=== PATIENT | female | born 1990 | race Caucasian/White ===

== ENCOUNTER → 2017-01-16 | Outpatient (CLI) | payer OTHER ==
[2017-01-16 14:51] LABS: HEMATOCRIT 37.6 % (37-47); MEAN CELL VOLUME 89.3 fL (80-100); MEAN CORPUSCULAR HEMOGLOBIN 30.6 pg (25-34); MEAN CORPUSCULAR HGB CONC 34.3 g/dl (32-36); MEAN PLATELET VOLUME 9.1 fL (7.4-10.4); PLATELET COUNT 218 K/uL (130-400); RED BLOOD COUNT 4.21 M/uL (4.2-5.4); WHITE BLOOD COUNT 4.96 K/uL (4.8-10.8)
[2017-01-16 15:29] LABS: ALT/SGPT 18 U/L (12-78); AST/SGOT 19 U/L (15-37); BLOOD UREA NITROGEN 14 mg/dl (7-18); BUN/CREATININE RATIO 16.3 (10-20); CALCIUM 8.6 mg/dl (8.5-10.1); CARBON DIOXIDE 31 mmol/L (21-32); CHLORIDE 106 mmol/L (98-107); CREATININE 0.86 mg/dl (0.60-1.20); GLUCOSE 77 mg/dl (70-99); POTASSIUM 4.1 mmol/L (3.5-5.1); SODIUM 140 mmol/L (136-145)
[2017-01-16 15:32] LABS: ALB/GLOB RATIO 1.3 (0.9-2); ALKALINE PHOSPHATASE 68 U/L (45-117)
[2017-01-20 08:43] LABS: CHLAMYDIA TRACH RNA*** NOT DETECTED (NOT DETECTED); GC (NEIS GONORRHOEAE)RNA** NOT DETECTED (NOT DETECTED)
== END | disposition home or self-care (01) ==
LOC: C.LAB1850 13:16
PROVIDERS: ATTEND Obstetrics & Gynecology
DX: Z20.2 Contact with and (suspected) exposure to infections with a predominantly sexual mode of transmission (principal); Z79.899 Other long term (current) drug therapy

== ENCOUNTER → 2017-01-16 | Outpatient (CLI) | payer OTHER | END | disposition home or self-care (01) | LOC: C.PAPS 16:08 | PROVIDERS: ATTEND Obstetrics & Gynecology | DX: Z12.4 Encounter for screening for malignant neoplasm of cervix (principal) ==

== ENCOUNTER → 2017-02-28 | Outpatient (CLI) | payer OTHER | END | disposition home or self-care (01) | LOC: C.LABSPEC 13:17 | PROVIDERS: ATTEND Physician Assistant | DX: L29.8 Other pruritus (principal) ==

== ENCOUNTER → 2017-04-18 | Outpatient (CLI) | payer OTHER | END | disposition home or self-care (01) | LOC: C.LAB 07:35 | PROVIDERS: ATTEND Dermatology | DX: L70.9 Acne, unspecified (principal) ==

== ENCOUNTER → 2017-07-22 | Outpatient (CLI) | payer OTHER ==
[2017-07-22 12:49] LABS: ALBUMIN 4.1 gm/dl (3.4-5.0); TOTAL PROTEIN 7.3 gm/dl (6.4-8.2)
== END | disposition home or self-care (01) ==
LOC: C.LAB1850 09:44
PROVIDERS: ATTEND Dermatology
DX: L70.0 Acne vulgaris (principal)

== ENCOUNTER → 2017-08-05 | Outpatient (CLI) | payer OTHER ==
--- NOTE | 2017-08-05 11:07 | DIAGNOSTIC IMAGING REPORT ---
ABDOMEN LIMITED (US) CLINICAL HISTORY: 27 years-old Female presenting with UPPER RIGHT QUAD Pain, r/o GALLSTONES, right upper quadrant pain for one year. TECHNIQUE: Real-time grayscale and limited color Doppler ultrasound imaging of the abdomen limited to the right upper quadrant was performed. COMPARISON: None. FINDINGS: Pancreas: Visualized portions of the pancreatic head and body normal. Liver: Normal echogenicity and echotexture. No sonographic evidence of hepatic mass. Main portal vein patent with normal directional flow. Biliary: No intrahepatic biliary ductal dilatation. Common bile duct measures up to 3 mm in diameter. Gallbladder: 2 mm hyperechogenic focus adherent to the gallbladder wall suggests cholesterol polyp. No evidence of gallstones, gallbladder wall thickening, gallbladder distention, or pericholecystic fluid or inflammatory change. Right kidney: Normal in appearance. No hydronephrosis. Ascites: None. Other: None. IMPRESSION: No cholelithiasis or biliary ductal dilatation. Electronically signed by: Javier Dent M.D. 08/05/2017 11:06 AM Dictated Date/Time: 08/05/2017 11:05 AM
== END | disposition home or self-care (01) ==
LOC: C.ULTRBC 08:36
PROVIDERS: ATTEND Family Medicine
DX: R10.11 Right upper quadrant pain (principal); Z79.899 Other long term (current) drug therapy

== ENCOUNTER → 2017-08-07 | Outpatient (CLI) | payer OTHER ==
[~2017-08-07] MED LIST: SINCALIDE INJ 1.1 MCG in SODIUM CHLORIDE 0.9% 100ML 100 ML IV SCH
--- NOTE | 2017-08-07 16:57 | DIAGNOSTIC IMAGING REPORT ---
NUCLEAR HEPATOBILIARY SCAN WITH EJECTION FRACTION IMAGING CLINICAL HISTORY: Right upper quadrant abdominal pain. COMPARISON STUDY: Abdominal ultrasound dated 08/05/2017. TECHNIQUE: Dynamic images of the liver and anterior abdomen were obtained every 5 minutes for a total of 60 minutes following the IV administration of 5.5mCi of technetium 99m Choletec. 1.1 mcg of sincalide was then injected with additional images acquired every 5 minutes for 45 minutes to calculate the gallbladder ejection fraction. There is mild discomfort with the Kinevac injection. FINDINGS: The hepatobiliary scan shows prompt and homogeneous hepatic uptake. There is visualized activity within the intra and extrahepatic biliary tree at 15 minutes, and within the gallbladder at 20 minutes. There is normal biliary to bowel transit, with small bowel visualized by 50 minutes. On the sincalide imaging, the gallbladder ejection fraction was measured at 82%. IMPRESSION: 1. Unremarkable nuclear hepatobiliary scan. There is no scintigraphic evidence of cholecystitis. 2. The gallbladder ejection fraction measured 82% which is normal. Electronically signed by: Angel Corrales M.D. 08/07/2017 4:55 PM Dictated Date/Time: 08/07/2017 4:54 PM
== END | disposition home or self-care (01) ==
LOC: C.NUCL 10:07
PROVIDERS: ATTEND Physician Assistant Medical
DX: R10.11 Right upper quadrant pain (principal)

== ENCOUNTER 2017-09-02 08:26 | Day surgery (SDC) | payer OTHER ==
[2017-08-28 10:37] VITALS: Ht 160 cm; Wt 57.0 kg
[~2017-09-02] VITALS: Ht 160 cm; Wt 57.0 kg
[~2017-09-02 08:26] MED LIST changes: +ACCUTANE PO; +CEFAZOLIN 2000MG IV PUSH 15 ML IV SCH; +ESCI10TA17 PO; +LACTATED RINGER'S 1000ML 1,000 ML IV SCH; -SINCALIDE INJ 1.1 MCG in SODIUM CHLORIDE 0.9% 100ML 100 ML IV SCH
[2017-09-02 08:59] VITALS: BP 107/67; PULSE 77; TEMP 36.9; O2SAT 99
[2017-09-02] MEDS ORDERED: ONDANSETRON INJ 2 MG/ML 2 ML VIAL ONE (09:03)
[2017-09-02] MEDS ORDERED: DEXAMETHASONE SOD INJ 4 MG/ML VIAL ONE (09:03)
[2017-09-02] MEDS ORDERED: HYDROmorphone INJ 2 MG/ML SYR/VIAL ONE (09:03)
[2017-09-02] MEDS ORDERED: LIDOCAINE HCL 2% 2 ML VIAL (20MG/ML) ONE (09:03)
[2017-09-02] MEDS ORDERED: FENTANYL CITRATE INJ 50 MCG/1 ML 2 ML VIAL ONE ×2 (09:03→09:45)
[2017-09-02] MEDS ORDERED: GLYCOPYRROLATE INJ 0.2 MG/ML VIAL ONE (09:03)
[2017-09-02] MEDS ORDERED: PROPOFOL IV EMULSION 10 MG/ML 20 ML VIAL ONE (09:03)
[2017-09-02] MEDS ORDERED: LARYING-O-JET KIT (LTA) ONE (09:03)
[2017-09-02] MEDS ORDERED: SODIUM CHLORIDE 0.9% INJ 10 ML VIAL ONE (09:03)
[2017-09-02] MEDS ORDERED: NEOSTIGMINE METHYLSULFATE 5 MG/5 ML SYR ONE (09:03)
[2017-09-02] MEDS ORDERED: MIDAZOLAM HCL 1 MG/ML 2ML VIAL ONE (09:03)
[2017-09-02] MEDS ORDERED: HYDR-5688 PO (09:24)
[2017-09-02] MEDS ORDERED: DiphenhydrAMINE HCL 50 MG/ML VIAL IV STA (09:29)
[2017-09-02] MEDS ORDERED: DiphenhydrAMINE HCL 50 MG/ML VIAL ONE (09:29)
[2017-09-02] MEDS ORDERED: BUPIVACAINE/EPINEPHRINE 0.5% MPF 1:200,000 30 ML VIAL ONE (09:35)
--- NOTE | 2017-09-02 09:52 | History & Physical Bridge Note ---
H&P Re-Evaluation Bridge Note: I have examined the patient, reviewed the History & Physical and in the interval since the performance of the History & Physical I have noted the following changes of clinical significance: No changes noted
[2017-09-02] MEDS ORDERED: ATROPINE SULFATE 0.1 MG/ML 5ML SYR IV PRN (10:00)
[2017-09-02] MEDS ORDERED: MEPERIDINE HCL 25 MG/ML CARP IV PRN (10:00)
[2017-09-02] MEDS ORDERED: ONDANSETRON INJ 2 MG/ML 2 ML VIAL IV PRN ×2 (10:00→11:15)
[2017-09-02] MEDS ORDERED: HYDROmorphone INJ 2 MG/ML SYR/VIAL IV PRN (10:00)
[2017-09-02] MEDS ORDERED: EpHEDrine SULFATE INJ 50 MG/ML AMP IV PRN (10:00)
[2017-09-02] MEDS ORDERED: LABETALOL HCL IV 5 MG/ML 20ML IV PRN (10:00)
[2017-09-02] MEDS ORDERED: FENTANYL CITRATE INJ 50 MCG/1 ML 2 ML VIAL IV PRN (10:00)
[2017-09-02] MEDS ORDERED: PHENYLEPHRINE 100MCG/ML 5ML SYR ONE (10:30)
[2017-09-02] MEDS ORDERED: ROCURONIUM BROMIDE 10 MG/ML 5 ML VIAL ONE (10:30)
--- NOTE | 2017-09-02 10:59 | [facility] Post Operative Brief Note ---
Immediate Operative Summary Operative Date September 02, 2017. Pre-Operative Diagnosis Right upper quadrant pain Post-Operative Diagnosis Right upper quadrant pain/biliary dyskinesia Procedure(s) Performed Diagnostic Laparoscopy and Laparoscopic Cholecystectomy Surgeon Dr. Mistry Cnc Machine Programmer Surgeon(s) Clemencia Murrell PA-C Estimated Blood Loss 5 ML Findings Consistent with Post-Op Diagnosis Specimens Permanent: A: Gallbladder and contents Anesthesia Type General
[2017-09-02] MEDS ORDERED: SODIUM CHLORIDE 0.9% 1000ML 1,000 ML IV SCH (11:07)
--- NOTE | 2017-09-02 11:09 | Discharge Instructions ---
Discharge Instructions Date of Service September 02, 2017. Admission Reason for Admission: Right Upper Quadrant Abdominal Pain Discharge Discharge Diagnosis / Problem: Right Upper Quadrant Abdominal Pain Discharge Goals Goal(s): Decrease discomfort, Improve function Activity Recommendations Activity Limitations: as noted below Lifting Limitations: no more than 10 pounds Exercise/Sports Limitations: until after follow-up appointment May Resume Sexual Activity: after follow-up appointment Shower/Bathe: tomorrow Driving or Machine Use: resume 1 day after discharge . Instructions / Follow-Up Instructions / Follow-Up You have surgical glue, Dermabond, over your incision. You may shower tomorrow , but please do not soak or scrub your incision until you see Dr. Mistry back in the General Surgery Clinic. Please follow-up with Dr. Mistry in the General Surgery Clinic located at [address] [place] [address] JERRICA Murillo in 1-2 weeks. Please call the office at [phone] to make an appointment if you do not have one already. Please call the General Surgery Clinic at [phone] with any questions or concerns. Current Hospital Diet Patient's current hospital diet: Discharge Diet Recommended Diet: Regular Diet Procedures Procedures Performed: Diagnostic Laparoscopy, Laparoscopic Cholecystectomy Pending Studies Studies pending at discharge: yes List of pending studies: Pathology report. Laboratory Results Lipid Panel Test 07/22/17 09:50 Range/Units Triglycerides Level 66 0-150 mg/dl Cholesterol Level 211 H 0-200 mg/dl HDL Cholesterol 67 mg/dl Cholesterol/HDL Ratio 3.1 LDL Cholesterol, Calculated 131 mg/dl Medical Emergencies . Who to Call and When: Medical Emergencies: If at any time you feel your situation is an emergency, please call 911 immediately. . Non-Emergent Contact Non-Emergency issues call your: Primary Care Provider, Surgeon Call Non-Emergent contact if: temperature is above 101.5, your pain is not controlled, wound has increased drainage, wound has increased redness . "Provider Documentation" section prepared by Clemencia Scott. . [place] Drug Monitoring Program Search Results: patient reviewed within database, no issues identified
[2017-09-02] MEDS ORDERED: HYDROCODONE/ACETAMIN 5/325MG TAB PO PRN ×2 (11:15)
--- NOTE | 2017-09-02 11:42 | [facility] Operative Report ---
Operative Report Operative Date September 02, 2017. Pre-Operative Diagnosis Right upper quadrant pain Post-Operative Diagnosis Right upper quadrant pain/biliary dyskinesia Procedure(s) Performed Diagnostic Laparoscopy, Laparoscopic Cholecystectomy Surgeon Dr. Mistry Instructor Painting Surgeon(s) Clemencia Murrell PA-C Estimated Blood Loss 5 ML Specimens Permanent: A: Gallbladder and contents Anesthesia Type General Complication(s) none Description of Procedure After informed consent was obtained the patient was taken to the operating room and placed in the supine position. After successful intubation the abdomen was sterilely prepped and draped in usual fashion. A periumbilical incision was made with an 11 blade scalpel and carried down through the soft tissue using electrocautery. The anterior rectus fascia was opened using electrocautery and 2 #0 Vicryl stay sutures were placed. The peritoneum was elevated with hemostats and incised under direct vision using Metzenbaum scissors. A finger sweep was performed and a 12 mm Lovett trocar was placed. The abdomen was insufflated to 18 mmHg. The laparoscope was inserted and the abdomen was examined in 360. We began by looking in the right upper quadrant which grossly appeared normal other than some mild thickening of the gallbladder with some adhesions at its neck. The stomach diaphragm, liver surfaces all appeared normal as did the peritoneal surfaces. Small/large bowel looked normal. Although we could not look deep into the pelvis we were able to look over the pelvic brim and saw no evidence of endometriosis or any other gross abnormality. Because of her symptoms related to her HIDA scan and the adhesions at the neck of the gallbladder we decided to go ahead and remove her gallbladder as discussed with her. A subxiphoid 5 mm port and 2 right upper quadrant 3 mm ports were placed under direct vision. The patient was placed in a reverse Trendelenburg position and slightly airplaned to the left. The gallbladder was grasped and elevated superiorly and laterally. A [place] dissector was used to take down adhesions around the neck of the gallbladder. The cystic duct was identified and skeletonized. It was clipped twice proximally and once distally and transected using a laparoscopic scissor. In similar fashion the cystic artery was identified and skeletonized clipped and divided. The gallbladder was removed from the gallbladder fossa with electrocautery. It was placed into an Endo Catch bag. Thorough irrigation was performed. At the end of the procedure there was adequate hemostasis and no evidence of any bile leaks. A final look around the abdomen showed no other abnormalities. The gallbladder and trochars were all removed and the abdomen was desufflated. The fascia of the camera port was closed using 0 Vicryl in a [id number] fashion. All the wounds were irrigated and closed using 4-0 Monocryl. Marcaine was injected around them for postoperative analgesia and skin glue used as a dressing. The patient was awaken extubated and transferred to recovery in stable condition. My physician's mail handler assistant was present throughout the entire case. she helped with prepping the patient. With exposure for trocar placement. she retracted the gallbladder throughout the case. she also assisted with wound closure and dressing placement. I attest to the content of the Intraoperative Record and any orders documented therein. Any exceptions are noted below.
[2017-09-02 12:02] VITALS: BP 103/74; PULSE 79; TEMP 36.3; O2SAT 99
[2017-09-02] MEDS ORDERED: HYDROCODONE/ACETAMIN 5/325MG TAB ONE (12:16)
--- NOTE | 2017-09-02 12:29 | Anesthesiology Progress Note ---
Anesthesia Post Op Note Date & Time September 02, 2017 at 12:28 Vital Signs Pain Intensity: 6.0 Vital Signs Past 12 Hours Date Time Temp Pulse Resp B/P (MAP) Pulse Ox O2 Delivery O2 Flow Rate FiO2 09/02/17 11:55 36.4 69 16 127/75 100 Room Air 09/02/17 11:45 76 20 126/80 99 Room Air 09/02/17 11:35 67 20 129/71 100 Oxymask 10 09/02/17 11:25 70 19 134/74 100 Oxymask 10 09/02/17 11:18 36.2 75 15 135/71 100 Oxymask 10 09/02/17 08:59 36.9 77 18 107/67 (80) 99 Nasal Cannula Notes Mental Status: alert / awake / arousable, participated in evaluation Pt Amnestic to Procedure: Yes Nausea / Vomiting: adequately controlled Pain: adequately controlled Airway Patency, RR, SpO2: stable & adequate BP & HR: stable & adequate Hydration State: stable & adequate Anesthetic Complications: no major complications apparent
[2017-09-02 12:40] VITALS: BP 119/67; PULSE 78; TEMP 37.3; O2SAT 97
[2017-09-02 13:05] VITALS: BP 116/69; PULSE 72; TEMP 36.4; O2SAT 98
== END 2017-09-02 13:22 | disposition home or self-care (01) ==
LOC: C.ACU 08:26
PROVIDERS: ATTEND Surgery
DX: R10.11 Right upper quadrant pain (principal); E03.9 Hypothyroidism, unspecified; F41.9 Anxiety disorder, unspecified; Z82.49 Family history of ischemic heart disease and other diseases of the circulatory system